=== PATIENT | female | born 1955 | race Caucasian/White ===

== ENCOUNTER → 2017-05-19 | Outpatient (CLI) | payer BC | LOC: RAD 02:27 | DX: Z12.31 Encounter for screening mammogram for malignant neoplasm of breast (principal) ==

== ENCOUNTER → 2018-06-12 | Outpatient (CLI) | payer OTHER | LOC: CAT 07:46 | DX: Z13.6 Encounter for screening for cardiovascular disorders (principal); E78.00 Pure hypercholesterolemia, unspecified ==

== ENCOUNTER → 2018-06-15 | Outpatient (CLI) | payer BC | LOC: RAD 06-07 07:46 | DX: Z12.31 Encounter for screening mammogram for malignant neoplasm of breast (principal) ==